=== PATIENT | male | born 1985 | race Caucasian/White ===

== ENCOUNTER 2022-03-19 16:57 | Emergency (ER) | payer OTHER ==
[2022-03-19 17:04] VITALS: BP 126/76; PULSE 78; RESP 18; TEMP 98.2; BMI 30.7
[2022-03-19 19:12] LABS: BASO % 0.6 % (0-2.0); EOS % 2.9 % (0-4.5); HEMOGLOBIN 14.9 GM/dL (11.7-16.9); MCH 31.7 pg (25.7-33.7); MCHC 35.6 g/dl (32.0-35.9); MEAN CELL VOLUME 89.2 fl (80-96); MEAN PLT VOLUME 9.1 fl (7.5-11.1); MONO % 8.9 % (3.8-10.2); NEUT % 51.6 % (42.8-82.8); PLATELET COUNT 187 10^3/uL (134-434); RBC 4.71 M/mm3 (4.00-5.60); RDW 12.3 % (11.9-15.9); WHITE BLOOD COUNT 7.2 K/mm3 (4.0-10.0)
[2022-03-19 19:40] LABS: CALCIUM 8.8 mg/dL (8.5-10.1)
[2022-03-19 19:44] LABS: CREATININE 0.9 mg/dL (0.55-1.3)
[2022-03-19 19:45] LABS: BILIRUBIN,TOTAL 0.8 mg/dL (0.2-1)
[2022-03-19 19:46] LABS: TOT PROT 7.6 g/dl (6.4-8.2)
== END 2022-03-19 20:59 | disposition home or self-care (01) ==
LOC: JER 16:57
DX: M79.89 Other specified soft tissue disorders (principal)
CPT/HCPCS: 36415; 73610-TC-RT-FY; 73630-TC-RT-FY; 80053; 85025; 93971-TC; 99284-25